=== PATIENT | male | born 1955 | race Caucasian/White ===

== ENCOUNTER → 2016-11-24 | Day surgery (SDC) | payer OTHER ==
[~2016-11-24] MED LIST: BUPIVACAINE 0.5% 30 ML SDV ONE; DEPO METHYLPREDNISOLONE 80 MG/ML SDV ONE; FLUMAZENIL 0.5 MG/5 ML MDV IVP ONE; IOPAMIDOL (ISOVUE-M 300) 15 ML VIAL ONE; LIDOCAINE 1% 300 MG/30 ML SDV ONE; MIDAZOLAM 2 MG/2 ML VIAL ONE; NALOXONE HCL 0.4 MG/ML INJ ONE; fentaNYL 100 MCG/2 ML INJ ONE
[2016-11-24 11:22] VITALS: BP 114/75; O2SAT 93
== END | disposition home or self-care (01) ==
LOC: FIMAGING 08:39
PROVIDERS: ATTEND Radiology Diagnostic Radiology
PROC: BR161ZZ Fluoroscopy of Lumbar Facet Joint(s) using Low Osmolar Contrast (ICD-10-PCS; principal; 2016-11-24)
PROC: 3E0U3BZ Introduction of Anesthetic Agent into Joints, Percutaneous Approach (ICD-10-PCS; principal; 2016-11-24)
PROC: 3E0U33Z Introduction of Anti-inflammatory into Joints, Percutaneous Approach (ICD-10-PCS; principal; 2016-11-24)
DX: M47.26 Other spondylosis with radiculopathy, lumbar region (principal); M47.27 Other spondylosis with radiculopathy, lumbosacral region; M48.06 Spinal stenosis, lumbar region; M48.07 Spinal stenosis, lumbosacral region; M51.16 Intervertebral disc disorders with radiculopathy, lumbar region; E11.610 Type 2 diabetes mellitus with diabetic neuropathic arthropathy; E66.9 Obesity, unspecified; Z68.35 Body mass index [BMI] 35.0-35.9, adult; Z98.1 Arthrodesis status; Z79.4 Long term (current) use of insulin
CPT/HCPCS: J1040; J2250; J2310; J3010; Q9967